=== PATIENT | male | born 1935 | race Caucasian/White ===

== ENCOUNTER 2017-12-11 16:24 | Inpatient (IN) ==
--- NOTE | 2017-12-11 17:10 | Emergency Department Note ---
Disposition Clinical Impression: Renal insufficiency CHF (congestive heart failure) Qualifiers: Heart failure type: unspecified Heart failure chronicity: acute Qualified Code( s): I50.9 - Heart failure, unspecified Disposition: Admitted As Inpatient Condition: Fair Referrals: Carlos Ken MD [Primary Care Provider] - Forms: ED Satisfaction Letter Time of Disposition: 18:50 General Adult HPI - General Chief complaint: ED Extremity Problem,Nontraumatic Stated complaint: "leg swelling" Time Seen by Provider: 12/11/17 17:08 Source: patient Mode of arrival: ambulatory Limitations: no limitations Nursing Notes Reviewed: Yes Vital Signs Reviewed: Yes - History of Present Illness HPI Narrative: 82-year-old with 2 day history of increasing lower extremity edema. Patient denies any chest pain but does have exertional dyspnea. Pt Subjective Complaint: Bilat lateral lower extremity edema Onset (ago): day(s) (2) Location: left, right, lower extremity Pain Scale: 0 Associated symptoms: Reports: other (Exertional dyspnea) - Related Data Previous Rx's Medication Instructions Recorded Naproxen [Naprosyn] 375 mg PO BID PRN #15 tablet 09/05/17 DiphenhydraMINE [Benadryl] 25 mg PO Q4HR #20 capsule 10/31/17 Hydrocortisone/Aloe Vera 28 gm TP BID #1 cream..g. 10/31/17 [Hydrocortisone-Aloe 1% Cream] DiphenhydraMINE [Benadryl] 25 mg PO Q6HR #20 capsule 11/08/17 PredniSONE [Deltasone] 20 mg PO DAILY #10 tablet 11/08/17 cephALEXin [Keflex] 500 mg PO QID #40 capsule 12/07/17 predniSONE [PredniSONE] 10 mg PO DAILY #21 tablet 12/07/17 Allergies Allergy/AdvReac Type Severity Reaction Status Date / Time No Known Allergies Allergy Verified 11/08/17 14:44 All systems ED: reviewed and negative except as stated. Constitutional: Denies: fever, chills, weakness, weight change Eyes: Denies: eye pain, eye discharge, vision change ENT ED: Denies: ear pain, throat pain, dental pain, hearing loss, epistaxis, congestion, dysphagia Cardiovascular: Reports: dyspnea on exertion. Denies: chest pain, palpitations , edema, syncope Respiratory: Denies: cough, dyspnea, wheezes, hemoptysis, stridor Gastrointestinal: Denies: abdominal pain, nausea, vomiting, diarrhea, constipation, hematemesis, melena, hematochezia Genitourinary: Denies: urgency, dysuria, frequency, hematuria Musculoskeletal: Reports: joint swelling. Denies: back pain, neck pain, arthralgia, myalgia Integumentary: Denies: rash, abrasion, lesions Neurological: Denies: headache, weakness, numbness, paresthesias, confusion, abnormal gait, vertigo Psychiatric: Denies: anxiety, depression, suicidal thoughts, homicidal thoughts , auditory hallucinations, visual hallucinations Endocrine: Denies: fatigue Hematological/Lymphatic: Denies: easy bleeding, easy bruising Allergic/Immunologic: Denies: facial swelling, urticaria Past Medical History - Past Medical History Medical history: Reports: hyperlipidemia, hypertension Psychiatric history: Reports: no psych history - Social History Smoking Status: Former smoker Smokeless Tobacco Status: No Alcohol use: Reports: none Drug use: Reports: none Physical Exam - General Limitations: no limitations General appearance: alert, in no apparent distress - Head Head exam: atraumatic, normocephalic, normal inspection - Eye Eye exam: Present: normal appearance, PERRL, EOMI - ENT ENT exam: normal exam, normal oropharynx, mucous membranes moist - Neck Neck exam: Present: normal inspection, full ROM, trachea midline - Chest Chest inspection: Present: normal inspection, symmetric chest wall rise - Respiratory Respiratory exam: Present: normal lung sounds bilaterally - Cardiovascular Cardiovascular exam: Present: regular rate, normal rhythm, normal heart sounds - Abdominal Exam Abdominal exam: Present: soft, Non-Tender. Absent: tenderness, distention, guarding, rebound, rigidity - Extremities Exam Extremities exam: Present: pedal edema - Expanded Lower Extremity Exam Neurovascular/Tendon exam: Absent: motor deficit, sensory deficit, tendon deficit Gait: observed and normal - Back Exam Back exam: Present: normal inspection, full ROM. Absent: tenderness - Neurological Exam Neurological exam: Present: alert, oriented X3 - Psychiatric Psychiatric exam: Present: normal affect, normal mood - Skin Skin exam: Present: warm, dry, intact, normal color Course - Reevaluation(s) Reevaluation #1: Deep vein thrombosis pathway his scores a 4 points of or calf swelling greater than 3 cm compared to the other leg, entire leg swollen, pitting edema greater in the symptomatically leg, which places him in a high risk. Time: 17:25 - Consultations Consultation #1: Discussed with Dr. Calvo, admit Time: 18:50 Vital Signs Temperature 97.5 F L 12/11/17 16:27 Pulse Rate 65 12/11/17 16:27 Respiratory Rate 18 12/11/17 16:27 Blood Pressure 128/64 12/11/17 16:27 O2 Sat by Pulse Oximetry 98 12/11/17 16:27 Temperature 97.5 F L 12/11/17 16:27 Pulse Rate 65 12/11/17 16:27 Respiratory Rate 18 12/11/17 16:27 Blood Pressure 128/64 12/11/17 16:27 O2 Sat by Pulse Oximetry 98 12/11/17 16:27 Oxygen Delivery Oxygen Delivery Room Air Medical Decision Making - Lab Data Lab results reviewed: Yes I reviewed the patient's lab results. Result diagrams: 12/11/17 17:16 12/11/17 17:16 Lab Results 12/11/17 12/11/17 12/11/17 Range/Units 17:16 17:16 17:16 WBC 11.2 H (4.3-11.1) K/mcL RBC 3.76 L (4.19-5.50) M/mcL Hgb 10.6 L (12.9-16.9) g/dL Hct 33.3 L (37.5-50.1) % MCV 88.6 (83.0-100.0) fL MCH 28.2 (28.0-33.3) pg MCHC 31.8 (31.6-35.5) g/dL RDW 13.1 (11.5-14.5) % Plt Count 386 (140-400) K/mcL MPV 9.6 (9.4-12.4) fL Immature Gran % 5.0 H (0-4) % Seg Neutrophils % 65.3 % Lymphocytes % 19.4 % Monocytes % 9.7 % Eosinophils % 0.2 % Basophils % 0.4 % Neutrophils # 7.3 (1.6-8.9) K/mcL Lymphocytes # 2.2 (0.6-4.6) K/mcL Monocytes # 1.1 (0.0-1.3) K/mcL Eosinophils # 0.0 (0.0-0.6) K/mcL Basophils # 0.0 (0.0-0.2) K/mcL Nucleated RBCs/100 WBC 0.2 H (0) /100 WBC Sodium 133 L (136-145) mEq/L Potassium 5.4 H (3.5-5.1) mEq/L Chloride 101 (98-107) mEq/L Carbon Dioxide 25 (23-29) mEq/L BUN 67 H (8-23) mg/dL Creatinine 2.42 H (0.70-1.30) mg/dL Est GFR ( Amer) 31 L (> 60) Est GFR (Non-Af Amer) 26 L (> 60) BUN/Creatinine Ratio 28 H (6-26) Glucose 99 (70-105) mg/dL Calculated Osmolality 295 (280-300) Calcium 7.9 L (8.6-10.3) mg/dL Troponin I 0.03 (< 0.04) ng/mL B-Natriuretic Peptide (Less than 100) pg/mL 12/11/17 Range/Units 17:16 WBC (4.3-11.1) K/mcL RBC (4.19-5.50) M/mcL Hgb (12.9-16.9) g/dL Hct (37.5-50.1) % MCV (83.0-100.0) fL MCH (28.0-33.3) pg MCHC (31.6-35.5) g/dL RDW (11.5-14.5) % Plt Count (140-400) K/mcL MPV (9.4-12.4) fL Immature Gran % (0-4) % Seg Neutrophils % % Lymphocytes % % Monocytes % % Eosinophils % % Basophils % % Neutrophils # (1.6-8.9) K/mcL Lymphocytes # (0.6-4.6) K/mcL Monocytes # (0.0-1.3) K/mcL Eosinophils # (0.0-0.6) K/mcL Basophils # (0.0-0.2) K/mcL Nucleated RBCs/100 WBC (0) /100 WBC Sodium (136-145) mEq/L Potassium (3.5-5.1) mEq/L Chloride (98-107) mEq/L Carbon Dioxide (23-29) mEq/L BUN (8-23) mg/dL Creatinine (0.70-1.30) mg/dL Est GFR ( Amer) (> 60) Est GFR (Non-Af Amer) (> 60) BUN/Creatinine Ratio (6-26) Glucose (70-105) mg/dL Calculated Osmolality (280-300) Calcium (8.6-10.3) mg/dL Troponin I (< 0.04) ng/mL B-Natriuretic Peptide 530 H (Less than 100) pg/mL - Radiology Data Radiology results reviewed: Yes I reviewed the patient's radiology results. Chest X-Ray 12/11/17 17:06 IMPRESSION: Mildly enlarged cardiac silhouette and mild vascular congestion. D/ / Joseph Grider MD / Joseph Grider MD Interpreting Provider: Joseph Grider MD Venous Doppler bilateral lower extremities is negative for DVT - EKG Data EKG #1 EKG attestation: Yes I reviewed and interpreted this EKG. EKG shows normal: sinus rhythm Rate: normal Rhythm: NSR [place]/QRS: LBBB Interpretation: no acute changes
[2017-12-11 17:26] LABS: Basophils % 0.4 %; Eosinophils % 0.2 %; Hematocrit 33.3 % (37.5-50.1); Hemoglobin 10.6 g/dL (12.9-16.9); Lymphocytes # 2.2 K/mcL (0.6-4.6); Lymphocytes % 19.4 %; Mean Corpuscular HGB Conc 31.8 g/dL (31.6-35.5); Mean Corpuscular Hemoglobin 28.2 pg (28.0-33.3); Mean Corpuscular Volume 88.6 fL (83.0-100.0); Mean Platelet Volume 9.6 fL (9.4-12.4); Monocytes # 1.1 K/mcL (0.0-1.3); Monocytes % 9.7 %; Neutrophils # 7.3 K/mcL (1.6-8.9); Nucleated Red Blood Cells 0.2 /100 WBC (0); Platelet Count 386 K/mcL (140-400); Red Blood Count 3.76 M/mcL (4.19-5.50); Red Cell Distribution Width 13.1 % (11.5-14.5); Segmented Neutrophils % 65.3 %
[2017-12-11 17:46] LABS: Calcium 7.9 mg/dL (8.6-10.3); Potassium 5.4 mEq/L (3.5-5.1)
[2017-12-11] MEDS ORDERED: Furosemide 40 MG in 0.9 % Sodium Chloride 50 ML IVPB ONE (18:44)
[2017-12-11] MEDS ORDERED: Furosemide 40 MG/4 ML VIAL IVP ONE (19:00)
[2017-12-11] MEDS ORDERED: Naloxone 0.4 MG/ML INJ IVP PRN (20:35)
[2017-12-11] MEDS ORDERED: Calcium Chloride 1,000 MG in 0.9 % Sodium Chloride 100 ML IVPB ONE (20:37)
[2017-12-11] MEDS ORDERED: *HR* Dextrose 50 % in Water (Syg) 50 ML SYRINGE IVP ONE (20:37)
[2017-12-11] MEDS ORDERED: Insulin Human Regular 10 UNIT in 0.9 % Sodium Chloride 10 ML IV ONE (20:37)
--- NOTE | 2017-12-11 20:44 | Internal Med History&Physical ---
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 send prelim urine studies Qualifiers: Chronic kidney disease stage: stage 3 (moderate) Qualified Code(s): N18.3 - Chronic kidney disease, stage 3 (moderate) (3) Pulmonary congestion Current visit: Yes Status: Acute check TTE does not appear symptomatic (4) HTN (hypertension) Current visit: Yes Status: Acute does not remember home med Qualifiers: Hypertension type: essential hypertension Qualified Code(s): I10 - Essential (primary) hypertension (5) HLD (hyperlipidemia) Current visit: Yes Status: Acute does not remember home med Qualifiers: Hyperlipidemia type: mixed hyperlipidemia Qualified Code(s): E78.2 - Mixed hyperlipidemia Internal Medicine - H&P: HPI Chief complaint: LE swelling History of present illness: Mr. Tse is a 82 year old male with hx of HTN, HLD who takes an unknown cholesterol med, BP pill and 81 ASA presents with 2-3 days hx of b/l LE edema. Denies SOB, RAJPUT. Found elevated Cr, likely CKD EKG personally reviewed with rate 57, sinus bradycardia, LBBB XR/XR chest 1V portable IMPRESSION: Mildly enlarged cardiac silhouette and mild vascular congestion. Past Med Surg Social Fam HX - Past Medical History Medical history: hyperlipidemia, hypertension Psychiatric history: no psych history - Past Surgical History Surgical History: no surgical history, non-contributory - Social History Smoking Status: Former smoker Smokeless Tobacco Status: No Alcohol use: none Drug use: none - Additional Family History Additional family history: HTN Internal Medicine - H&P: Meds Naproxen [Naprosyn] 375 mg PO BID PRN #15 tablet 09/05/17 [Rx] DiphenhydraMINE [Benadryl] 25 mg PO Q4HR #20 capsule 10/31/17 [Rx] Hydrocortisone/Aloe Vera [Hydrocortisone-Aloe 1% Cream] 28 gm TP BID #1 cream..g. 10/31/17 [Rx] DiphenhydraMINE [Benadryl] 25 mg PO Q6HR #20 capsule 11/08/17 [Rx] PredniSONE [Deltasone] 20 mg PO DAILY #10 tablet 11/08/17 [Rx] cephALEXin [Keflex] 500 mg PO QID #40 capsule 12/07/17 [Rx] predniSONE [PredniSONE] 10 mg PO DAILY #21 tablet 12/07/17 [Rx] 3 Allergy/AdvReac Type Severity Reaction Status Date / Time No Known Allergies Allergy Verified 11/08/17 14:44 All Systems PM: A 10-system review of systems was performed and is negative for pertinent findings except as documented above in the HPI. Review of systems: ROS 14 point review of systems reviewed as best as possible given presentation. Pertinent positive or negative as per HPI or otherwise reviewed as negative - Constitutional Vitals: Temp Pulse Resp BP Pulse Ox 97.4 F L 65 16 161/80 95 12/11/17 20:27 12/11/17 20:27 12/11/17 20:27 12/11/17 20:27 12/11/17 20:27 Exam: General - AAO x 3 Psych - Appropriate affect/speech. No agitation Eyes - Periorbital edema. ANDREW. Eye lids intact. No scleral icterus Heart - Sinus. RRR. S1 and S2 present. No added HS/murmurs appreciated. No elevated JVD appreciated. Lung - Adequate air entry b/l, No crackles/wheezes appreciated GI - Soft, non-tender. No hepatosplenomegaly/ascites. BS+ - No CVA/suprapubic tenderness or palpable bladder distension Skin - Intact. No rash/petechiae/ecchymosis. +2 b/l LE edema Internal Med - H&P Results - Labs CBC & Chem 7: 12/11/17 17:16 12/11/17 17:16
[2017-12-12 06:38] LABS: Basophils % 0.4 %; Eosinophils # 0.2 K/mcL (0.0-0.6); Eosinophils % 2.3 %; Hematocrit 31.4 % (37.5-50.1); Hemoglobin 10.1 g/dL (12.9-16.9); Immature Granulocytes % 3.3 % (0-4); Lymphocytes # 2.8 K/mcL (0.6-4.6); Lymphocytes % 28.3 %; Mean Corpuscular HGB Conc 32.2 g/dL (31.6-35.5); Mean Corpuscular Hemoglobin 28.3 pg (28.0-33.3); Monocytes # 1.1 K/mcL (0.0-1.3); Monocytes % 10.9 %; Neutrophils # 5.4 K/mcL (1.6-8.9); Nucleated Red Blood Cells 0.3 /100 WBC (0); Platelet Count 349 K/mcL (140-400); Red Blood Count 3.57 M/mcL (4.19-5.50); Red Cell Distribution Width 13.2 % (11.5-14.5); Segmented Neutrophils % 54.8 %
[2017-12-12 06:59] LABS: Albumin/Globulin Ratio 1.1 (1.1-2.2); Bilirubin,Total 0.5 mg/dL (0.3-1.0); Calcium 8.1 mg/dL (8.6-10.3); Globulin 2.7 g/dL (2.4-3.5); Potassium 4.1 mEq/L (3.5-5.1); Total Protein 5.7 g/dL (6.4-8.9)
--- NOTE | 2017-12-12 08:10 | Nephrology Consult Note ---
Date of Encounter: 12/12/17 Time of Encounter: 08:07 Assessment and Plan (1) Chronic kidney disease (CKD), stage IV (severe) Current Visit: Yes Status: Acute The patient has a history of chronic kidney disease. It is unclear what his baseline creatinine GFR are. We will attempt to get some lab values tomorrow after the office opens. He does present with worsening lower extremity swelling. We will check some urine studies to see if he has significant proteinuria which may contribute to his lower extremity swelling. May be worthwhile repeating his echocardiogram to see if his aortic stenosis has worsened since July 2017. It also may be worthwhile to consider venous duplex studies of the lower extremities to rule out any DVT. (2) CAD (coronary artery disease), [place] coronary artery Current Visit: Yes Status: Acute Qualifiers: Circle vs. transplanted heart: [place] heart Associated angina: without angina Qualified Code(s): I25.10 - Atherosclerotic heart disease of [place] coronary artery without angina pectoris (3) HTN (hypertension) Current Visit: Yes Status: Acute Qualifiers: Hypertension type: essential hypertension Qualified Code(s): I10 - Essential (primary) hypertension (4) HLD (hyperlipidemia) Current Visit: Yes Status: Acute Qualifiers: Hyperlipidemia type: mixed hyperlipidemia Qualified Code(s): E78.2 - Mixed hyperlipidemia History of Present Illness - History of Present Illness This is an 82-year-old female who presented to emergency room with complaints of worsening lower extremity swelling. He is noted to have a serum creatinine of 2.31 with a GFR of 27. Patient had been seen in the office several years ago for chronic kidney disease. It is unclear what his renal function was at that time. There are currently no old lab values available for comparison. Patient denies any unusual shortness of breath although he said yesterday with walking he did experience some exertional dyspnea. He denies any chest pain. He does have a history of coronary disease and is status post bypass surgery approximately 13 years ago. He denies any difficulty emptying his bladder. He has not been taking any nonsteroidal anti-inflammatory agents. He denies any hematuria. No history of renal stones. He does have a history of hypertension and hyperlipidemia. BNP level is only mildly elevated at 530. An echocardiogram from July 2017 showed an EF of 55-60% with moderate aortic stenosis. The patient's home medical list does question whether or not he has been on naproxen. Patient was recently seen in the emergency room because of pleuritic rash involving his back and legs and had been treated with oral steroids. The patient reports that approximately a week ago he did notice some mild swelling of the right lower extremity. At that time he had no swelling of the left lower extremity. Past Med Surg Social Fam HX - Past Medical History Medical history: hyperlipidemia, hypertension Psychiatric history: no psych history - Past Surgical History Surgical History: no surgical history, non-contributory - Social History Smoking Status: Former smoker Smokeless Tobacco Status: No Alcohol use: none Drug use: none Medications and Allergies Naproxen [Naprosyn] 375 mg PO BID PRN #15 tablet 09/05/17 [Rx] DiphenhydraMINE [Benadryl] 25 mg PO Q4HR #20 capsule 10/31/17 [Rx] Hydrocortisone/Aloe Vera [Hydrocortisone-Aloe 1% Cream] 28 gm TP BID #1 cream..g. 10/31/17 [Rx] DiphenhydraMINE [Benadryl] 25 mg PO Q6HR #20 capsule 11/08/17 [Rx] PredniSONE [Deltasone] 20 mg PO DAILY #10 tablet 11/08/17 [Rx] cephALEXin [Keflex] 500 mg PO QID #40 capsule 12/07/17 [Rx] predniSONE [PredniSONE] 10 mg PO DAILY #21 tablet 12/07/17 [Rx] 3 Allergy/AdvReac Type Severity Reaction Status Date / Time No Known Allergies Allergy Verified 11/08/17 14:44 Review of Systems Constitutional: no excessive sweating, no weight loss Eyes: bilateral: blurred vision (patient denies), diplopia (patient denies) Nose, mouth and throat: no dizziness, no headache(s) Cardiovascular: dyspnea on exertion, edema, leg edema, no chest pain, no palpitations Respiratory: dyspnea on exertion, no cough, no dyspnea Gastrointestinal: no abdominal pain, no change in bowel habits Musculoskeletal: no muscle weakness, no numbness Integumentary: no hirsutism, no striae Neurological: as per HPI Psychiatric: no depression, no difficulty concentrating Endocrine: as per HPI Hematologic/Lymphatic: no easy bruising, no lymphadenopathy Exam - Vital Signs Vital signs: Initial Vital Signs Temp Pulse Resp BP Pulse Ox 97.5 F L 65 18 128/64 98 12/11/17 16:27 12/11/17 16:27 12/11/17 16:27 12/11/17 16:27 12/11/17 16:27 Vital Signs - Last 8 Hours Temp Pulse Resp BP Pulse Ox 12/12/17 07:42 98.2 F 65 18 149/66 92 12/12/17 03:30 98.1 F 67 17 137/69 95 Intake and Output 12/11/17 12/12/17 12/12/17 23:59 07:59 15:59 Other: Weight 105.687 kg 105.687 kg Blood Glucose* 99 Patient Weight 12/12/17 23:59 Weight 105.687 kg - General Appearance Exam: Patient is alert and oriented. He is in no acute distress. Blood pressure 137/ 69. He is afebrile. Lungs clear to auscultation. Heart regular rate and rhythm with a 2/6 ejection murmur. Abdomen shows bowel sounds to bruits masses or megaly or tenderness. Lower extremities demonstrate 1-2+ lower extremity swelling greater on the right compared to the left. Results - Lab Results 12/12/17 05:31 12/12/17 05:31 Most recent lab results Calcium 8.1 mg/dL (8.6-10.3) L 12/12/17 05:31 Consult Discharge Plan - Plan Referrals: Carlos Ken MD [Primary Care Provider] -
[2017-12-12] MEDS: Aspirin 81 MG TAB.CHEW PO SCH (09:23)
[2017-12-12 12:27] LABS: Bilirubin,Urine Negative (Negative); Blood,Urine Negative (Negative); Clarity,Urine Clear (Clear); Color,Urine Yellow (Yellow); Glucose,Urine (UA) Normal (Normal); Ketones,Urine Negative (Negative); Leukocyte Esterase,Urine Negative (Negative); Nitrite,Urine Negative (Negative); Protein,Urine 100 mg/dL (Neg-Trace); Specific Gravity,Urine 1.015 (1.010-1.025); Urobilinogen,Urine Normal (Normal)
[2017-12-12 12:31] LABS: Sodium, Urine 106.2 mEq/L
[2017-12-12 12:34] LABS: Creatinine,Urine 41 mg/dL; Microalbumin,Urine > 450 mg/L
--- NOTE | 2017-12-12 15:36 | Internal Med Progress Note ---
Date of Encounter: 12/12/17 Time of Encounter: 15:34 - Assessment and plan (1) Chronic kidney disease (CKD), stage IV (severe) Current Visit: Yes Status: Chronic Assessment and plan: Per the nephrology note: The patient has a history of chronic kidney disease. It is unclear what his baseline creatinine/ GFR are. We will attempt to get some lab values tomorrow after the office opens. He does present with worsening lower extremity swelling. We will check some urine studies to see if he has significant proteinuria which may contribute to his lower extremity swelling. Echocardiogram completed, revaluate aortic stenosis , last echo July 2017. venous duplex studies of the lower extremities completed report pending (2) HLD (hyperlipidemia) Current Visit: Yes Status: Chronic Assessment and plan: Continue home medication Qualifiers: Hyperlipidemia type: mixed hyperlipidemia Qualified Code(s): E78.2 - Mixed hyperlipidemia (3) HTN (hypertension) Current Visit: Yes Status: Chronic Assessment and plan: Continue home medications Qualifiers: Hypertension type: essential hypertension Qualified Code(s): I10 - Essential (primary) hypertension (4) Leg edema Current Visit: Yes Status: Acute Assessment and plan: Nephrology following to rule out nephrotic syndrome Echocardiogram pending results LFTs normal limits (5) DVT prophylaxis Current Visit: Yes Status: Acute Assessment and plan: Heparin subcutaneous Lovenox and view of his renal disease, no SCDs relative to the peripheral edema - Time Spent With Patient less than 15 minutes - Subjective Interval history: Patient is lying in bed in no distress watching TV. He denies any chest pain shortness of breath or pain. He states the swelling in his legs is much better today. - Constitutional Vitals: Temp Pulse Resp BP Pulse Ox 97.8 F 62 17 150/74 94 12/12/17 15:20 12/12/17 15:20 12/12/17 15:20 12/12/17 15:20 12/12/17 15:20 General appearance: Present: cooperative, A&O X 3, pleasant, no acute distress, answers questions appropriately - Head Head exam: Present: atraumatic, normocephalic - Eye Eye exam: Present: PERRL, conjuntiva pink, sclera anicteric Pupils: Present: PERRL - Neck Neck exam general surgery: Present: supple, trachea midline. Absent: lymphadenopathy - Respiratory Respiratory exam: Present: CTAB. Absent: accessory muscle use, rales, rhonchi, wheezes - Cardiovascular Cardiovascular exam: Present: RRR, +S1, +S2. Absent: diastolic murmur, gallop, rubs, systolic murmur Additional comments: Bilateral lower extremity pitting edema knees to the ankles - GI/Abdominal GI/Abdominal exam: Present: normal bowel sounds, soft, no peritoneal signs. Absent: distended, tenderness - Extremities Exam Extremities exam: Present: warm, radial pulses palpable and symmetrical. Absent : calf tenderness, cyanotic, pedal edema - Neurological Exam Neurological exam: Present: CN II-XII intact, oriented X3, no focal deficits. Absent: pronater drift, facial droop, speech deficit - Skin Skin exam: Present: dry, intact, warm Internal Medicine: Result - Labs CBC & Chem 7: 12/12/17 05:31 12/12/17 05:31 Labs: Short CBC 12/12/17 Range/Units 05:31 WBC 9.8 (4.3-11.1) K/mcL Hgb 10.1 L (12.9-16.9) g/dL Hct 31.4 L (37.5-50.1) % Plt Count 349 (140-400) K/mcL Neutrophils # 5.4 (1.6-8.9) K/mcL BMP 12/12/17 05:31 Sodium 138 Potassium 4.1 Chloride 102 Carbon Dioxide 29 BUN 65 H Creatinine 2.31 H Glucose 80 Calcium 8.1 L Liver Function 12/12/17 Range/Units 05:31 Total Bilirubin 0.5 (0.3-1.0) mg/dL AST 31 (13-39) Units/L ALT 48 (7-52) Units/L Alkaline Phosphatase 57 (34-104) Units/L Albumin 3.0 L (3.5-5.7) g/dL Urine 12/12/17 Range/Units 12:09 Urine Color Yellow (Yellow) Urine Clarity Clear (Clear) Urine pH 7.0 (5.0-8.0) pH Units Ur Specific [place] 1.015 (1.010-1.025) Urine Protein 100 H (Neg-Trace) mg/dL Urine Glucose (UA) Normal (Normal) mg/dL Consult Discharge Plan - Plan Referrals: james,Carlos Camacho MD [Primary Care Provider] -
[2017-12-12] MEDS: *HR* Heparin 5,000 UNIT/ML VIAL SQ SCH (16:52)
[2017-12-13] MEDS: *HR* Heparin 5,000 UNIT/ML VIAL SQ SCH ×2 (06:07→18:15)
[2017-12-13 06:12] LABS: Albumin 2.9 g/dL (3.5-5.7); Bilirubin,Total 0.4 mg/dL (0.3-1.0); Calcium 8.3 mg/dL (8.6-10.3); Globulin 2.9 g/dL (2.4-3.5); Potassium 3.7 mEq/L (3.5-5.1); Total Protein 5.8 g/dL (6.4-8.9)
[2017-12-13] MEDS: Aspirin 81 MG TAB.CHEW PO SCH (08:32)
--- NOTE | 2017-12-13 10:30 | Nephrology Progress Note ---
Date of Encounter: 12/13/17 Time of Encounter: 09:40 - Assessment and Plan (1) Chronic kidney disease (CKD), stage IV (severe) Current Visit: Yes Status: Chronic CKD 4, baseline creat 1.8-2.1. Renal fct stable creat 2.10. Nephrotic range proteinuria. ECHO-moderate aortic stenosis, moderate pulmonary HTN. Avoid nephrotoxins, I&O's Continue to monitor. Subjective Interval history: HOB 30 degrees.States breathing easier. States LE swelling improved. Objective - Vital Signs Vital signs: Vital Signs Temp Pulse Resp BP Pulse Ox 12/13/17 07:45 98.5 F 79 18 152/61 95 12/13/17 03:52 98.0 F 72 17 142/68 95 12/12/17 23:03 98.1 F 64 17 168/79 94 12/12/17 21:00 95 12/12/17 19:31 98.0 F 64 17 177/54 95 12/12/17 15:20 97.8 F 62 17 150/74 94 12/12/17 11:59 98.0 F 62 18 143/72 92 Intake and Output 12/12/17 12/13/17 12/13/17 23:59 07:59 15:59 Intake Total 240 / 240 Output Total 250 / 250 1300 / 1300 Balance -10 / -10 -1300 / -1300 Intake: Oral 240 / 240 Output: Urine 250 / 250 1300 / 1300 Other: Percent of Meal Consumed 100% Weight 100.38 kg Patient Weight 12/13/17 23:59 Weight 100.38 kg - General Appearance General appearance: Present: well-developed, well-nourished, appears started age EENT: Present: mucous membranes moist Neck: Present: no JVD Respiratory: Present: clear Cardiology: Present: edema, regular rate, regular rhythm Additional Comments: 2/6 sys murmur, 1+ pitting edema Gastrointestinal: Present: normoactive bowel sounds, no tenderness Integumentary: Present: warm and dry Neurologic: Present: alert and oriented x3 - Lab 12/12/17 05:31 12/13/17 04:59 Most recent lab results Calcium 8.3 mg/dL (8.6-10.3) L 12/13/17 04:59 Urine Creatinine 41 mg/dL 12/12/17 12:09 Urine Sodium 106.2 mEq/L 12/12/17 12:09 Urine Total Protein 160 mg/dL 12/12/17 12:09 Consult Discharge Plan - Plan Referrals: Carlos Ken MD [Primary Care Provider] -
--- NOTE | 2017-12-13 16:39 | Electrocardiograph Report ---
[place] [id number] Test Date: 2017-12-11 Pat Name: Mckay Tse Department: 103 Room: 3B44 Gender: M [employer] Manager: TERRENCE : [id number] Requested By: Mike Melton Order Number: [id number] Reading MD: Joseph Sharma DO Measurements Intervals [place] Rate: 57 P: 40 WV: 183 QRS: -6 QRSD: 151 T: 76 QT: 468 QTc: 462 Interpretive Statements SINUS BRADYCARDIA LEFT BUNDLE BRANCH BLOCK Electronically Signed On 12-13-2017 16:37:44 EST by Joseph Sharma DO
--- NOTE | 2017-12-13 16:40 | Internal Med Progress Note ---
Date of Encounter: 12/13/17 Time of Encounter: 16:38 - Assessment and plan (1) Chronic kidney disease (CKD), stage IV (severe) Current Visit: Yes Status: Acute Assessment and plan: Per the nephrology note: The patient has a history of chronic kidney disease stage IV, baseline creatinine 1.8-2.1. Renal function stable with creatinine at 2.10. Nephrotic range protein urea, echo moderate aortic stenosis and moderate pulmonary hypertension Avoid nephrotoxins Continue I's and O's Continue to monitor lab work. Present with worsening lower extremity swelling. Echocardiogram completed, last echo July 2017. venous duplex studies of the lower extremities completed with no blood clots noted (2) HLD (hyperlipidemia) Current Visit: Yes Status: Chronic Assessment and plan: Continue his home medication Qualifiers: Hyperlipidemia type: mixed hyperlipidemia Qualified Code(s): E78.2 - Mixed hyperlipidemia (3) HTN (hypertension) Current Visit: Yes Status: Chronic Assessment and plan: Continue home medications, blood pressure stable Qualifiers: Hypertension type: essential hypertension Qualified Code(s): I10 - Essential (primary) hypertension (4) Leg edema Current Visit: Yes Status: Acute Assessment and plan: Nephrology following to rule out nephrotic syndrome Dopplers negative for DVT Patient needs to elevate his legs when out of bed The edema is a little better today (5) DVT prophylaxis Current Visit: Yes Status: Acute Assessment and plan: Heparin subcutaneous in view of his renal disease, no SCDs relative to the peripheral edema - Subjective Interval history: Patient is sitting up in the room in no distress. He is very anxious to go home. Explained that he needs at least another day. We need to complete his testing and follow his lab work for another day. He was reluctant to stay but he agreed. Nephrology is following denies chest pain, shortness of breath, abdominal pain, sweats, chills, headache, dizziness. He states his breathing is much easier and he feels his edema is much better almost back to baseline - Constitutional Vitals: Temp Pulse Resp BP Pulse Ox 98.5 F 78 18 153/76 99 12/13/17 16:32 12/13/17 16:32 12/13/17 16:32 12/13/17 16:32 12/13/17 16:32 General appearance: Present: cooperative, A&O X 3, pleasant, no acute distress, answers questions appropriately - Head Head exam: Present: atraumatic, normocephalic - Eye Eye exam: Present: PERRL, conjuntiva pink, sclera anicteric Pupils: Present: PERRL - Neck Neck exam general surgery: Present: supple, trachea midline. Absent: lymphadenopathy - Respiratory Respiratory exam: Present: CTAB. Absent: accessory muscle use, rales, rhonchi, wheezes - Cardiovascular Cardiovascular exam: Present: RRR, +S1, +S2. Absent: diastolic murmur, gallop, rubs, systolic murmur Additional comments: Bilateral lower extremity edema though it is improved is still present - GI/Abdominal GI/Abdominal exam: Present: normal bowel sounds, soft, no peritoneal signs. Absent: distended, tenderness - Extremities Exam Extremities exam: Present: warm, radial pulses palpable and symmetrical. Absent : calf tenderness, cyanotic, pedal edema - Neurological Exam Neurological exam: Present: CN II-XII intact, oriented X3, no focal deficits. Absent: pronater drift, facial droop, speech deficit - Skin Skin exam: Present: dry, intact, warm Internal Medicine: Result - Labs CBC & Chem 7: 12/12/17 05:31 12/13/17 04:59 Labs: BMP 12/13/17 04:59 Sodium 137 Potassium 3.7 Chloride 101 Carbon Dioxide 28 BUN 52 H Creatinine 2.10 H Glucose 84 Calcium 8.3 L Liver Function 12/13/17 Range/Units 04:59 Total Bilirubin 0.4 (0.3-1.0) mg/dL AST 25 (13-39) Units/L ALT 41 (7-52) Units/L Alkaline Phosphatase 59 (34-104) Units/L Albumin 2.9 L (3.5-5.7) g/dL Consult Discharge Plan - Plan Referrals: Carlos Ken MD [Primary Care Provider] -
[2017-12-14 05:20] LABS: Hematocrit 35.3 % (37.5-50.1); Hemoglobin 11.4 g/dL (12.9-16.9); Mean Corpuscular HGB Conc 32.3 g/dL (31.6-35.5); Mean Corpuscular Volume 86.7 fL (83.0-100.0); Platelet Count 341 K/mcL (140-400); Red Blood Count 4.07 M/mcL (4.19-5.50); Red Cell Distribution Width 13.3 % (11.5-14.5)
[2017-12-14 05:49] LABS: Calcium 8.3 mg/dL (8.6-10.3)
[2017-12-14] MEDS: *HR* Heparin 5,000 UNIT/ML VIAL SQ SCH (06:03)
--- NOTE | 2017-12-14 08:53 | Nephrology Progress Note ---
Date of Encounter: 12/14/17 Time of Encounter: 08:15 - Assessment and Plan (1) Chronic kidney disease (CKD), stage IV (severe) Current Visit: Yes Status: Acute CKD 4, baseline creat 1.8-2.1. Renal fct stable creat 1.97. Nephrotic range proteinuria. ECHO-moderate aortic stenosis, moderate pulmonary HTN. Avoid nephrotoxins, I&O's Continue to monitor. If discharged, will follow in office. Subjective Interval history: Sitting up in chair. States breathing easier. States LE swelling improved. Wants to go home. Objective - Vital Signs Vital signs: Vital Signs Temp Pulse Resp BP Pulse Ox 12/14/17 07:24 98.2 F 76 16 148/81 94 12/14/17 04:43 97.8 F 89 18 147/70 96 Intake and Output 12/13/17 12/14/17 12/14/17 23:59 07:59 15:59 Other: Weight 99.836 kg Patient Weight 12/14/17 23:59 Weight 99.836 kg - General Appearance General appearance: Present: well-developed, well-nourished, appears started age EENT: Present: mucous membranes moist Neck: Present: no JVD Respiratory: Present: clear Cardiology: Present: edema, regular rate, regular rhythm Additional Comments: Mild edema, 3/6 sys murmur Gastrointestinal: Present: normoactive bowel sounds, no tenderness Integumentary: Present: warm and dry Neurologic: Present: alert and oriented x3 - Lab 12/14/17 03:57 12/14/17 03:57 Most recent lab results Calcium 8.3 mg/dL (8.6-10.3) L 12/14/17 03:57 Urine Creatinine 41 mg/dL 12/12/17 12:09 Urine Sodium 106.2 mEq/L 12/12/17 12:09 Urine Total Protein 160 mg/dL 12/12/17 12:09 Consult Discharge Plan - Plan Referrals: Carlos Ken MD [Primary Care Provider] -
[2017-12-14] MEDS: Aspirin 81 MG TAB.CHEW PO SCH (08:54)
[2017-12-14 09:11] LABS: Total Volume 24 Hour,Urine 3.47 Liters (0.80-1.80)
[2017-12-14 14:27] LABS: Protein/Creatinine Ratio,Urine 5.39 mg/mg (0.00-0.20)
[2017-12-14 15:31] VITALS: BP 150/70
--- NOTE | 2017-12-14 15:31 | Discharge Summary ---
Date of Encounter: 12/14/17 Time of Encounter: 15:29 - Discharge Diagnosis (1) Chronic kidney disease (CKD), stage IV (severe) Priority: Primary Status: Chronic Comments: CKD 4, baseline creat 1.8-2.1. Creatinine is 1.97 returning back to baseline. Nephrotic range proteinuria. ECHO-moderate aortic stenosis, moderate pulmonary HTN. We will have patient follow-up with nephrology as outpatient-Dr. Clayton (2) Leg edema Status: Acute Comments: Dopplers negative for DVT advised patient to elevate his legs when out of bed, patient feels that his legs are back to baseline. We will stop patient's amlodipine-does have history of proteinuria-initiated on lisinopril Patient will follow up with nephrology as outpatient (3) HLD (hyperlipidemia) Status: Chronic Comments: Continue with statin Qualifiers: Hyperlipidemia type: mixed hyperlipidemia Qualified Code(s): E78.2 - Mixed hyperlipidemia (4) HTN (hypertension) Status: Chronic Comments: Continue with atenolol, we will stop amlodipine and start on lisinopril Qualifiers: Hypertension type: essential hypertension Qualified Code(s): I10 - Essential (primary) hypertension - Discharge Medications Prescriptions: Lisinopril [Zestril] 2.5 mg PO DAILY #30 tablet Home Medications: cephALEXin [Keflex] 500 mg PO QID #40 capsule 12/07/17 [Rx] predniSONE [PredniSONE] 10 mg PO DAILY #21 tablet 12/07/17 [Rx] Atenolol [Tenormin] 25 mg PO BID 12/12/17 [History] Pravastatin Sodium [Pravachol] 20 mg PO DAILY 12/12/17 [History] Aspirin 81 mg PO DAILY tab.chew 12/14/17 [Rx] Atenolol [Tenormin] 25 mg PO BID tablet 12/14/17 [Rx] Lisinopril [Zestril] 2.5 mg PO DAILY #30 tablet 12/14/17 [Rx] Allergies/Adverse Reactions: 3 Allergy/AdvReac Type Severity Reaction Status Date / Time No Known Allergies Allergy Verified 11/08/17 14:44 Date of admission: 12/14/17 03:13 Primary care physician: Carlos Ken MD Consults: nephrology Discharging clinician: Mayelin Linares Anticipated date of discharge: 12/14/17 - Patient Status Condition: Fair - Discharge Instructions Follow Up With: Carlos Ken MD [Primary Care Provider] - Hospital course: Mr. Tse is a 82 year old male - Time Spent with Patient Total time spent providing and/or coordinating discharge services: - Constitutional Vitals: Temp Pulse Resp BP Pulse Ox 97.7 F 79 16 179/81 97 12/14/17 12:12 12/14/17 12:12 12/14/17 12:12 12/14/17 12:12 12/14/17 12:12 General appearance: Present: cooperative, A&O X 3, pleasant, no acute distress, answers questions appropriately
--- NOTE | 2017-12-14 16:34 | Discharge Summary ---
Date of Encounter: 12/16/17 Time of Encounter: 16:00 - Discharge Diagnosis (1) Chronic kidney disease (CKD), stage IV (severe) Status: Chronic (2) Leg edema Status: Acute (3) HLD (hyperlipidemia) Status: Chronic Qualifiers: Hyperlipidemia type: unspecified Qualified Code(s): E78.5 - Hyperlipidemia , unspecified (4) HTN (hypertension) Status: Chronic Qualifiers: Hypertension type: essential hypertension Qualified Code(s): I10 - Essential (primary) hypertension - Discharge Medications Prescriptions: Lisinopril [Zestril] 2.5 mg PO DAILY #30 tablet Home Medications: cephALEXin [Keflex] 500 mg PO QID #40 capsule 12/07/17 [Rx] predniSONE [PredniSONE] 10 mg PO DAILY #21 tablet 12/07/17 [Rx] Atenolol [Tenormin] 25 mg PO BID 12/12/17 [History] Pravastatin Sodium [Pravachol] 20 mg PO DAILY 12/12/17 [History] Aspirin 81 mg PO DAILY tab.chew 12/14/17 [Rx] Atenolol [Tenormin] 25 mg PO BID tablet 12/14/17 [Rx] Lisinopril [Zestril] 2.5 mg PO DAILY #30 tablet 12/14/17 [Rx] Allergies/Adverse Reactions: 3 Allergy/AdvReac Type Severity Reaction Status Date / Time No Known Allergies Allergy Verified 11/08/17 14:44 Date of admission: 12/14/17 03:13 Primary care physician: Carlos Ken MD Discharging clinician: Mayelin Linares - Patient Status Disposition: Home, Self-Care Condition: Fair - Discharge Instructions Instructions: Chronic Hypertension (DC), Chronic Kidney Disease, Engineering Director (GEN) Follow Up With: Renny Mabry DO [Non-Partnered Physician] - (Please call for a follow up appointment within in 1 week from discharge. ) Carlos Ken MD [Primary Care Provider] - (Please call for a follow up with in 1-2 weeks from discharge. ) Clark Low [Partnered Physician] - (This appointment was web requested. Please call the office if you do not hear anything in 2-3 days. ) Additional Instructions: Follow-up appointments: If there is not an appointment listed below, please call your physician and schedule a follow-up appointment. If you have congestive heart failure and your symptoms return, make an appointment with your physician. Medication List: Carry an up to date list of medications you are taking at all time. We have given you an updated medication list including any new medications that you have been prescribed. Please provide that list to your primary provider Symptoms: If your condition changes or you experience any of the following symptoms, notify your physician immediately: Unusual or worsening pain, fever, persistent nausea and vomiting, bleeding, increase in swelling (especially in your legs), sudden weight gain, extreme dizziness, chest pain, increased drainage or redness from a wound or incision. Go to the emergency department if you experience a problem with breathing. Weights: If you have a history of swelling or shortness of breath, weigh yourself daily and notify your physician if you have a weight gain of two or more pounds in one day or 5 or more pounds in a week. If you experience any of the warning signs for stroke: Sudden numbness or weakness of the face, arm or leg; especially on one side of the body, sudden confusion, trouble speaking or understanding, sudden trouble seeing in one or both eyes, sudden trouble walking, dizziness, loss of balance or coordination, sudden sever headache with no cause; Call 911 or go to the emergency room. Stroke is a medical emergency. Some risk factors for stroke: Age, cigarette smoking, diabetes, excessive alcohol consumption, family history , high blood pressure, overweight, physical inactivity, prior stroke, heart attack, diagnosis of carotid artery stenosis or other artery disease. If you smoke, STOP: Smoking or tobacco use significantly increases your risk of heart and lung disease. Your chance of disease greatly increases if you continue to smoke. For more information, call the [place] tobacco quit line for smoking cessation QUIT-NOW ( ) Hospital course: Mr. Tse is a 82 year old male - Time Spent with Patient Total time spent providing and/or coordinating discharge services: - Constitutional Vitals: Temp Pulse Resp BP Pulse Ox 98.3 F 76 16 150/70 96 12/14/17 15:30 12/14/17 15:30 12/14/17 15:30 12/14/17 15:30 12/14/17 15:30 General appearance: Present: cooperative, A&O X 3, pleasant, no acute distress, answers questions appropriately
--- NOTE | 2017-12-14 16:49 | Discharge Summary ---
Date of Encounter: 12/14/17 Time of Encounter: 15:47 - Discharge Diagnosis (1) Chronic kidney disease (CKD), stage IV (severe) Priority: Primary Status: Chronic Comments: CK D stage IV baseline is 1.8-2.1 presently creatinine stable 1.97 nephrotic range proteinuria. Echo was completed which showed moderate aortic stenosis which was unchanged from previous and July he does have some moderate pulmonary hypertension. We will stop amlodipine started on low-dose lisinopril have patient follow-up with nephrology in 1 week (2) Leg edema Priority: Primary Status: Acute Comments: He has been expressing no extremity edema-does have some proteinuria will hold amlodipine and placed on lisinopril. Patient will follow-up with nephrology We will also have patient follow-up with cardiology he sees Dr. Low (3) HLD (hyperlipidemia) Priority: Secondary Status: Chronic Comments: Continue a statin Qualifiers: Hyperlipidemia type: unspecified Qualified Code(s): E78.5 - Hyperlipidemia , unspecified (4) HTN (hypertension) Priority: Secondary Status: Chronic Comments: We will hold amlodipine and she will lisinopril continue with atenolol Qualifiers: Hypertension type: essential hypertension Qualified Code(s): I10 - Essential (primary) hypertension - Discharge Medications Prescriptions: Lisinopril [Zestril] 2.5 mg PO DAILY #30 tablet Home Medications: cephALEXin [Keflex] 500 mg PO QID #40 capsule 12/07/17 [Rx] predniSONE [PredniSONE] 10 mg PO DAILY #21 tablet 12/07/17 [Rx] Atenolol [Tenormin] 25 mg PO BID 12/12/17 [History] Pravastatin Sodium [Pravachol] 20 mg PO DAILY 12/12/17 [History] Aspirin 81 mg PO DAILY tab.chew 12/14/17 [Rx] Atenolol [Tenormin] 25 mg PO BID tablet 12/14/17 [Rx] Lisinopril [Zestril] 2.5 mg PO DAILY #30 tablet 12/14/17 [Rx] Allergies/Adverse Reactions: 3 Allergy/AdvReac Type Severity Reaction Status Date / Time No Known Allergies Allergy Verified 11/08/17 14:44 Date of admission: 12/14/17 03:13 Primary care physician: Carlos Ken MD Consults: Nephrology Discharging clinician: Mayelin Linares Anticipated date of discharge: 12/14/17 - Patient Status Disposition: Home, Self-Care Condition: Fair Functional capacity at discharge: independent ambulation Overall status at discharge: patient is not back to baseline - Discharge Instructions Instructions: Chronic Hypertension (DC) [place] [facility] [place] - Renny Mabry DO [Non-Partnered Physician] - Clark oLw [Partnered Physician] - - Diet and Activity Activity: increase activity as tolerated Diet: low salt diet Hospital course: Mr. Tse is a 82 year old male patient presented to the ER with worsening lower extremity swelling he had a creatinine at 2.31 with GFR 27. He does have past history CKD IV. He does have a history of coronary disease status post bypass surgery approximately 13 years ago. Echocardiogram from July 2017 showed an EF of 55-60% with moderate aortic stenosis. Nephrology was consult to rule out nephrotic syndrome urine studies were completely which did reveal proteinuria repeat echocardiogram did show no changes aortic stenosis-moderate pulmonary hypertension. Venous duplex studies completed with no blood clots noted. Edema improved as well as creatinine. Amlodipine has been stopped patient will be initiated on lisinopril and he will follow-up with both cardiology and nephrology as outpatient - Time Spent with Patient Total time spent providing and/or coordinating discharge services: Less than 30 minutes - Constitutional Vitals: Temp Pulse Resp BP Pulse Ox 98.3 F 76 16 150/70 96 12/14/17 15:30 12/14/17 15:30 12/14/17 15:30 12/14/17 15:30 12/14/17 15:30 General appearance: Present: cooperative, A&O X 3, pleasant, no acute distress, answers questions appropriately - Head Head exam: Present: atraumatic, normocephalic - Eye Eye exam: Present: PERRL, conjuntiva pink, sclera anicteric Pupils: Present: PERRL - Neck Neck exam general surgery: Present: supple, trachea midline. Absent: lymphadenopathy - Respiratory Respiratory exam: Present: CTAB. Absent: accessory muscle use, rales, rhonchi, wheezes - Cardiovascular Cardiovascular exam: Present: RRR, +S1, +S2. Absent: diastolic murmur, gallop, rubs, systolic murmur - GI/Abdominal GI/Abdominal exam: Present: normal bowel sounds, soft, no peritoneal signs. Absent: distended, tenderness - Extremities Exam Extremities exam: Present: warm, radial pulses palpable and symmetrical. Absent : calf tenderness, cyanotic, pedal edema - Neurological Exam Neurological exam: Present: CN II-XII intact, oriented X3, no focal deficits. Absent: pronater drift, facial droop, speech deficit - Skin Skin exam: Present: dry, intact
[2017-12-15 01:03] LABS: Alpha 2 Globulin (PEP) 0.91 g/dL (0.48-1.05); Beta Globulin (PEP) 0.77 g/dL (0.48-1.10)
[2017-12-15 15:12] LABS: IFE Reflexed NOT DONE
== END 2017-12-14 18:18 | disposition home or self-care (01) | DRG 683 ==
LOC: 3BNU 16:24 → EMEROO 16:24 → 3BNU 19:40
PROVIDERS: ADMIT Internal Medicine; ATTEND Registered Nurse

== ENCOUNTER 2021-04-07 19:49 | Inpatient (IN) ==
[2021-04-07 21:09] LABS: Basophils % 0.6 %; Eosinophils # 0.4 K/mcL (0.0-0.6); Eosinophils % 6.2 %; Hematocrit 32.8 % (37.5-50.1); Hemoglobin 10.2 g/dL (12.9-16.9); Immature Granulocytes % 0.2 % (0-4); Lymphocytes # 2.8 K/mcL (0.6-4.6); Lymphocytes % 43.5 %; Mean Corpuscular HGB Conc 31.1 g/dL (31.6-35.5); Mean Corpuscular Hemoglobin 28.2 pg (28.0-33.3); Mean Corpuscular Volume 90.6 fL (83.0-100.0); Mean Platelet Volume 10.6 fL (9.4-12.4); Monocytes # 0.8 K/mcL (0.0-1.3); Monocytes % 12.4 %; Neutrophils # 2.4 K/mcL (1.6-8.9); Platelet Count 198 K/mcL (140-400); Red Blood Count 3.62 M/mcL (4.19-5.50); Red Cell Distribution Width 13.2 % (11.5-14.5); Segmented Neutrophils % 37.1 %; White Blood Count 6.4 K/mcL (4.3-11.1)
[2021-04-07 21:25] LABS: Alanine Aminotransferase 9 Units/L (7-52); Albumin 3.1 g/dL (3.5-5.7); Albumin/Globulin Ratio 1.1 (1.1-2.2); Alkaline Phosphatase 73 Units/L (34-104); Aspartate Amino Transferase 13 Units/L (13-39); BUN/Creatinine Ratio 15 (6-26); Bilirubin,Direct 0.1 mg/dL (0.0-0.2); Bilirubin,Indirect 0.3 mg/dL (0.0-1.0); Bilirubin,Total 0.4 mg/dL (0.3-1.0); Blood Urea Nitrogen 42 mg/dL (8-23); Calcium 8.3 mg/dL (8.6-10.3); Carbon Dioxide 26 mEq/L (23-29); Chloride 104 mEq/L (98-107); Globulin 2.8 g/dL (2.4-3.5); Glucose 97 mg/dL (70-105); Osmolality,Calculated 292 (280-300); Potassium 4.5 mEq/L (3.5-5.1); Sodium 136 mEq/L (136-145); Total Protein 5.9 g/dL (6.4-8.9); Troponin I < 0.03 ng/mL (< 0.04); eGFR For African Americans 26 (> 60); eGFR For Non-African Americans 22 (> 60)
[2021-04-07] MEDS ORDERED: Furosemide 20 MG/2 ML VIAL IVP ONE (22:07)
[2021-04-07 22:12] LABS: Bilirubin,Urine Negative (Negative); Blood,Urine Negative (Negative); Clarity,Urine Clear (Clear); Color,Urine Light-Yellow (Yellow); Glucose,Urine (UA) Normal (Normal); Ketones,Urine Negative (Negative); Leukocyte Esterase,Urine Negative (Negative); Mucus,Urine Few per lpf (None-Few); Nitrite,Urine Negative (Negative); Protein,Urine >=600 mg/dL (Neg-Trace); RBC,Urine 0-3 per hpf (0-3); Specific Gravity,Urine 1.015 (1.010-1.025); Squamous Epithelial Cell,Urine Few per hpf (None-Few); Urobilinogen,Urine Normal (Normal); WBC,Urine 0-3 per hpf (0-3)
[2021-04-08] MEDS ORDERED: Naloxone 0.4 MG/ML INJ IVP PRN (00:12)
[2021-04-08] MEDS ORDERED: amLODIPine 5 MG TABLET PO ONE (02:23)
[2021-04-08] MEDS ORDERED: Furosemide 20 MG/2 ML VIAL IVP ONE (02:58)
[2021-04-08] MEDS ORDERED: *HR* LORazepam 2 MG/ML VIAL IVP ONE (05:09)
[2021-04-08 05:38] LABS: Hematocrit 35.8 % (37.5-50.1); Hemoglobin 11.7 g/dL (12.9-16.9); Mean Corpuscular HGB Conc 32.7 g/dL (31.6-35.5); Mean Corpuscular Volume 88.8 fL (83.0-100.0); Mean Platelet Volume 10.9 fL (9.4-12.4); Platelet Count 234 K/mcL (140-400); Red Blood Count 4.03 M/mcL (4.19-5.50); Red Cell Distribution Width 13.1 % (11.5-14.5); White Blood Count 8.4 K/mcL (4.3-11.1)
[2021-04-08 06:02] LABS: BUN/Creatinine Ratio 16 (6-26); Blood Urea Nitrogen 43 mg/dL (8-23); Calcium 8.5 mg/dL (8.6-10.3); Carbon Dioxide 22 mEq/L (23-29); Chloride 104 mEq/L (98-107); Glucose 96 mg/dL (70-105); Osmolality,Calculated 293 (280-300); Potassium 4.2 mEq/L (3.5-5.1); Sodium 136 mEq/L (136-145); Troponin I < 0.03 ng/mL (< 0.04); eGFR For African Americans 27 (> 60); eGFR For Non-African Americans 22 (> 60)
[2021-04-08 07:46] LABS: Protein/Creatinine Ratio,Urine 10.81 mg/mg (0.00-0.20); Sodium, Urine 101.2 mEq/L
[2021-04-08] MEDS: carvediloL 6.25 MG TABLET PO SCH ×2 (09:03→16:25)
[2021-04-08] MEDS: Aspirin 81 MG TAB.CHEW PO SCH (10:09)
[2021-04-08] MEDS ORDERED: *HR* HYDROcodone/Acet 5/325 mg TABLET PO ONE (10:13)
[2021-04-08] MEDS ORDERED: atenoloL 50 MG TABLET PO SCH (12:45)
[2021-04-08] MEDS: lisinopriL 5 MG TABLET PO SCH (13:32)
[2021-04-09 03:15] LABS: Basophils % 0.5 %; Eosinophils # 0.4 K/mcL (0.0-0.6); Eosinophils % 4.3 %; Hematocrit 35.4 % (37.5-50.1); Hemoglobin 11.4 g/dL (12.9-16.9); Immature Granulocytes % 0.4 % (0-4); Lymphocytes # 2.6 K/mcL (0.6-4.6); Mean Corpuscular HGB Conc 32.2 g/dL (31.6-35.5); Mean Corpuscular Hemoglobin 28.4 pg (28.0-33.3); Mean Corpuscular Volume 88.1 fL (83.0-100.0); Mean Platelet Volume 10.5 fL (9.4-12.4); Monocytes # 0.8 K/mcL (0.0-1.3); Monocytes % 9.3 %; Neutrophils # 4.6 K/mcL (1.6-8.9); Platelet Count 222 K/mcL (140-400); Red Blood Count 4.02 M/mcL (4.19-5.50); Red Cell Distribution Width 12.9 % (11.5-14.5); Segmented Neutrophils % 54.5 %; White Blood Count 8.4 K/mcL (4.3-11.1)
[2021-04-09 03:37] LABS: Calcium 8.4 mg/dL (8.6-10.3); Potassium 4.3 mEq/L (3.5-5.1)
[2021-04-09] MEDS ORDERED: amLODIPine 5 MG TABLET PO SCH ×2 (04:34→09:00)
[2021-04-09] MEDS ORDERED: Nitroglycerin 0.4 MG TAB.SUBL SL PRN (07:30)
[2021-04-09] MEDS: carvediloL 6.25 MG TABLET PO SCH (08:07)
[2021-04-09] MEDS: lisinopriL 5 MG TABLET PO SCH (08:07)
[2021-04-09] MEDS: Aspirin 81 MG TAB.CHEW PO SCH (08:07)
[2021-04-09] MEDS ORDERED: Ondansetron 4 MG/2 ML VIAL IVP PRN (08:23)
[2021-04-09 11:12] VITALS: BP 132/68
== END 2021-04-09 14:34 | disposition home or self-care (01) | DRG 291 ==
LOC: EMEROOARM 19:49 → 3NENU 19:49 → SUATTDRO 23:36 → 3NENU 04-08 00:39
PROVIDERS: ADMIT Internal Medicine; ATTEND Family Medicine

== ENCOUNTER 2021-09-11 20:52 | Observation (INO) ==
[2021-09-11 21:47] LABS: Basophils # 0.1 K/mcL (0.0-0.2); Basophils % 0.8 %; Eosinophils # 0.4 K/mcL (0.0-0.6); Eosinophils % 5.9 %; Hematocrit 33.6 % (37.5-50.1); Hemoglobin 10.6 g/dL (12.9-16.9); Immature Granulocytes % 0.2 % (0-4); Lymphocytes # 2.1 K/mcL (0.6-4.6); Lymphocytes % 32.8 %; Mean Corpuscular HGB Conc 31.5 g/dL (31.6-35.5); Mean Corpuscular Volume 88.7 fL (83.0-100.0); Mean Platelet Volume 10.7 fL (9.4-12.4); Monocytes # 0.7 K/mcL (0.0-1.3); Monocytes % 11.6 %; Neutrophils # 3.1 K/mcL (1.6-8.9); Platelet Count 240 K/mcL (140-400); Red Blood Count 3.79 M/mcL (4.19-5.50); Red Cell Distribution Width 13.1 % (11.5-14.5); Segmented Neutrophils % 48.7 %; White Blood Count 6.4 K/mcL (4.3-11.1)
[2021-09-11 21:57] LABS: INR 1.1; Prothrombin Time 12.2 Seconds (9.4-12.1)
[2021-09-11 21:59] LABS: Activated Partial Thrombo Time 35.1 Seconds (26.0-36.0)
[2021-09-11 22:20] LABS: Albumin 3.5 g/dL (3.5-5.7); Albumin/Globulin Ratio 0.9 (1.1-2.2); Bilirubin,Direct 0.1 mg/dL (0.0-0.2); Bilirubin,Indirect 0.4 mg/dL (0.0-1.0); Bilirubin,Total 0.5 mg/dL (0.3-1.0); Calcium 8.7 mg/dL (8.6-10.3); Globulin 3.7 g/dL (2.4-3.5); Potassium 4.4 mEq/L (3.5-5.1); Total Protein 7.2 g/dL (6.4-8.9); Troponin I 0.05 ng/mL (< 0.04)
[2021-09-11] MEDS ORDERED: Furosemide 20 MG/2 ML VIAL IVP ONE (23:15)
[2021-09-11] MEDS ORDERED: Aspirin 81 MG TAB.CHEW PO STA (23:24)
[2021-09-11] MEDS ORDERED: Acetaminophen 325 MG TABLET PO PRN (23:42)
[2021-09-11] MEDS ORDERED: Naloxone 0.4 MG/ML INJ IVP PRN (23:42)
[2021-09-11] MEDS ORDERED: Ondansetron 4 MG/2 ML VIAL IVP PRN (23:42)
[2021-09-11] MEDS ORDERED: Melatonin 3 MG TABLET PO PRN (23:42)
[2021-09-12 00:18] LABS: Bilirubin,Urine Negative (Negative); Blood,Urine Trace (Negative); Clarity,Urine Clear (Clear); Color,Urine Colorless (Yellow); Glucose,Urine (UA) Normal (Normal); Hyaline Casts,Urine Few per lpf (None Seen); Ketones,Urine Negative (Negative); Leukocyte Esterase,Urine Negative (Negative); Mucus,Urine Few per lpf (None-Few); Nitrite,Urine Negative (Negative); PH,Urine 6.5 pH Units (5.0-8.0); Protein,Urine >=300 mg/dL (Neg-Trace); RBC,Urine 0-3 per hpf (0-3); Specific Gravity,Urine 1.012 (1.010-1.025); Urobilinogen,Urine Normal (Normal); WBC,Urine 0-3 per hpf (0-3)
[2021-09-12 00:57] LABS: Adenovirus Not Detected (Not Detect); Bordetella Pertussis Not Detected (Not Detect); Chlamydophila pneumoniae Not Detected (Not Detect); Coronavirus 229E Not Detected (Not Detect); Coronavirus HKU1 Not Detected (Not Detect); Coronavirus NL63 Not Detected (Not Detect); Coronavirus OC43 Not Detected (Not Detect); Human Metapneumovirus Not Detected (Not Detect); Human Rhinovirus/Enterovirus Not Detected (Not Detect); Influenza A Subtype 2009 H1 Not Detected (Not Detect); Influenza B Not Detected (Not Detect); Mycoplasma pneumoniae Not Detected (Not Detect); Parainfluenza Virus 1 Not Detected (Not Detect); Parainfluenza Virus 2 Not Detected (Not Detect); Parainfluenza Virus 3 Not Detected (Not Detect); Parainfluenza Virus 4 Not Detected (Not Detect); Respiratory Syncytial Virus Not Detected (Not Detect); SARS-CoV-2 Not Detected (Not Detect)
[2021-09-12 04:20] LABS: Hematocrit 30.2 % (37.5-50.1); Hemoglobin 9.9 g/dL (12.9-16.9); Mean Corpuscular HGB Conc 32.8 g/dL (31.6-35.5); Mean Corpuscular Hemoglobin 28.5 pg (28.0-33.3); Mean Platelet Volume 10.3 fL (9.4-12.4); Platelet Count 211 K/mcL (140-400); Red Blood Count 3.47 M/mcL (4.19-5.50); Red Cell Distribution Width 13.2 % (11.5-14.5)
[2021-09-12] MEDS: *HR* Heparin 5,000 UNIT/ML VIAL SQ SCH ×3 (04:38→19:39)
[2021-09-12 04:44] LABS: Calcium 8.5 mg/dL (8.6-10.3); Magnesium 2.1 mg/dL (1.6-2.6); Phosphorous 4.4 mg/dL (2.7-4.5); Potassium 4.4 mEq/L (3.5-5.1)
[2021-09-12 06:55] LABS: Troponin I 0.04 ng/mL (< 0.04)
[2021-09-12] MEDS ORDERED: carvediloL 6.25 MG TABLET PO SCH (08:00)
[2021-09-12] MEDS ORDERED: lisinopriL 5 MG TABLET PO SCH (09:00)
[2021-09-12] MEDS ORDERED: atenoloL 50 MG TABLET PO SCH (09:00)
[2021-09-12] MEDS: Nicotine 21 MG PATCH.TD24 TD SCH (09:15)
[2021-09-12] MEDS: Multivit/Ca/Min/Fe/FA 1 TAB TABLET PO SCH (09:15)
[2021-09-12] MEDS: Aspirin 81 MG TAB.CHEW PO SCH (09:15)
[2021-09-12] MEDS: Ipratropium/Albuterol Neb 3 ML IH SCH ×3 (10:46→20:45)
[2021-09-12 11:41] LABS: Bacteria,Urine Few per hpf (None-Few); Bilirubin,Urine Negative (Negative); Blood,Urine Trace (Negative); Clarity,Urine Clear (Clear); Color,Urine Light-Yellow (Yellow); Glucose,Urine (UA) 50 mg/dL (Normal); Hyaline Casts,Urine Few per lpf (None Seen); Ketones,Urine Negative (Negative); Leukocyte Esterase,Urine Negative (Negative); Mucus,Urine Few per lpf (None-Few); Nitrite,Urine Negative (Negative); PH,Urine 6.5 pH Units (5.0-8.0); Protein,Urine >=300 mg/dL (Neg-Trace); RBC,Urine 0-3 per hpf (0-3); Specific Gravity,Urine 1.015 (1.010-1.025); Squamous Epithelial Cell,Urine Few per hpf (None-Few); Urobilinogen,Urine Normal (Normal); WBC,Urine 0-3 per hpf (0-3)
[2021-09-12] MEDS ORDERED: carvediloL 6.25 MG TABLET PO ONE (12:06)
[2021-09-12] MEDS: hydrALAZINE 10 MG TABLET PO SCH ×2 (12:13→16:04)
[2021-09-12 13:05] LABS: Uric Acid 9.3 mg/dL (2.3-7.6)
[2021-09-12 13:16] LABS: Protein/Creatinine Ratio,Urine 7.24 mg/mg (0.00-0.20); Sodium, Urine 73.8 mEq/L
[2021-09-12] MEDS: carvediloL 6.25 MG TABLET PO SCH (16:04)
[2021-09-13] MEDS: hydrALAZINE 10 MG TABLET PO SCH ×4 (00:01→17:14)
[2021-09-13 01:08] LABS: Hematocrit 30.8 % (37.5-50.1); Hemoglobin 9.7 g/dL (12.9-16.9); Mean Corpuscular HGB Conc 31.5 g/dL (31.6-35.5); Mean Corpuscular Hemoglobin 27.5 pg (28.0-33.3); Mean Corpuscular Volume 87.3 fL (83.0-100.0); Mean Platelet Volume 10.4 fL (9.4-12.4); Platelet Count 203 K/mcL (140-400); Red Blood Count 3.53 M/mcL (4.19-5.50); Red Cell Distribution Width 13.1 % (11.5-14.5); White Blood Count 6.6 K/mcL (4.3-11.1)
[2021-09-13 01:26] LABS: Potassium 4.3 mEq/L (3.5-5.1)
[2021-09-13] MEDS: Ipratropium/Albuterol Neb 3 ML IH SCH ×3 (03:42→15:49)
[2021-09-13] MEDS: *HR* Heparin 5,000 UNIT/ML VIAL SQ SCH ×2 (05:22→12:42)
[2021-09-13] MEDS ORDERED: Regadenoson 0.4 MG/5 ML SYRINGE IVP ONE (06:14)
[2021-09-13] MEDS: Multivit/Ca/Min/Fe/FA 1 TAB TABLET PO SCH (08:23)
[2021-09-13] MEDS: Aspirin 81 MG TAB.CHEW PO SCH (08:23)
[2021-09-13] MEDS: carvediloL 6.25 MG TABLET PO SCH ×2 (08:28→17:14)
[2021-09-13] MEDS: Nicotine 21 MG PATCH.TD24 TD SCH (08:28)
[2021-09-13 16:00] VITALS: BP 146/77; PULSE 70; TEMP 97.6; O2SAT 98
== END 2021-09-13 17:29 | disposition home or self-care (01) ==
LOC: 2ANU 20:52 → EMEROOARM 20:52 → SUATTDRO 23:53 → 2ANU 09-12 00:30
PROVIDERS: ADMIT Family Medicine; ATTEND Internal Medicine